=== PATIENT | male | born 1960 | race Caucasian/White ===

== ENCOUNTER 2017-08-25 09:38 | Observation (INO) ==
[2017-08-25] MEDS ORDERED: Nitroglycerin 0.4 MG TAB.SUBL SL ONE (09:58)
[2017-08-25] MEDS ORDERED: Aspirin 81 MG TAB.CHEW PO ONE (09:58)
[2017-08-25] MEDS ORDERED: 0.9 % Sodium Chloride 500 ML IVC ONE (10:06)
--- NOTE | 2017-08-25 10:09 | Emergency Department Note ---
Disposition Clinical Impression: Tobacco abuse, History of MD (myocardial infarction) Chest pain Qualifiers: Chest pain type: unspecified Qualified Code(s): R07.9 - Chest pain, unspecified Disposition: Admitted As Inpatient Condition: Fair Referrals: NONE,PCP [Primary Care Provider] - Forms: ED Satisfaction Letter Time of Disposition: 11:54 Chest Pain HPI - General Chief Complaint: ED Chest Pain Stated Complaint: CP Time Seen by Provider: 08/25/17 09:40 Source: patient Mode of arrival: ambulatory Limitations: no limitations Vital Signs Reviewed: Yes Nursing Notes Reviewed: Yes - History of Present Illness HPI Narrative: 56 year old male history of tobacco use, ACS. This provided additional chest pain. Patient states interim onset was approximately an hour prior to ED arrival. Patient noted retrosternal chest pressure with non-exertion patient also notes pain in his left arm. Notes numbness and tingling in his fingers. Patient does note some shortness of breath. Pain is worse with deep inspiration. Patient denies any vomiting. Patient denies any diaphoresis. Patient denies any fevers or cough. Patient states that he does not see a provider on a regular basis. Pt complaint: chest pain Time: 09:00 Severity scale (1-10): 8 - Related Data Home Medications Medication Instructions Recorded Confirmed No Known Home Drugs 08/25/17 08/25/17 Allergies Allergy/AdvReac Type Severity Reaction Status Date / Time No Known Allergies Allergy Verified 08/25/17 11:56 All systems ED: reviewed and negative except as stated. Constitutional: Denies: fever Cardiovascular: Reports: chest pain Respiratory: Reports: dyspnea. Denies: cough, sputum production Gastrointestinal: Denies: abdominal pain, nausea, vomiting Chest Pain PMH - Past Medical History Medical history: Reports: coronary artery disease Psychiatric history: Reports: no psych history - Social History Smoking Status: Current some day smoker Physical Exam - General Limitations: no limitations General appearance: alert, in no apparent distress - Head Head exam: atraumatic, normocephalic, normal inspection - Eye Eye exam: Present: normal appearance, PERRL, EOMI - ENT ENT exam: normal exam, normal oropharynx, mucous membranes moist - Neck Neck exam: Present: normal inspection, full ROM, trachea midline - Chest Chest inspection: Present: normal inspection, symmetric chest wall rise - Respiratory Respiratory exam: Present: prolonged expiratory phase, other (diffusely decreased). Absent: respiratory distress - Cardiovascular Cardiovascular exam: Present: regular rate, normal rhythm, +S1, +S2. Absent: + S3, +S4 - Abdominal Exam Abdominal exam: Present: soft, Non-Tender - Extremities Exam Extremities exam: Present: normal inspection. Absent: pedal edema - Back Exam Back exam: Present: normal inspection - Neurological Exam Neurological exam: Present: alert, oriented X3 - Psychiatric Psychiatric exam: Present: normal affect, normal mood - Skin Skin exam: Present: warm, dry, intact, normal color Course Course Narrative: Patient presented with CP and SOB of less than 1 hour. EKG showed sinus rhythm. D-dimer within normal limits. CXR with no acute findings. Troponin pending. - Reevaluation(s) Reevaluation #1: Patient's chest and arm pain improved but still present after administration of nitro x2. Continues to complain of numbness/paresthesia in the left arm. Initial troponin <0.03. Vital Signs Temperature 97.3 F L 08/25/17 09:45 Pulse Rate 101 08/25/17 09:45 Respiratory Rate 15 08/25/17 09:45 Blood Pressure 145/96 08/25/17 09:45 O2 Sat by Pulse Oximetry 98 08/25/17 09:45 Temperature 97.3 F L 08/25/17 09:58 Pulse Rate 80 08/25/17 11:15 Respiratory Rate 15 08/25/17 11:15 Blood Pressure 126/78 08/25/17 11:15 O2 Sat by Pulse Oximetry 98 08/25/17 11:15 Oxygen Delivery Oxygen Delivery Nasal Cannula Chest Pain - [facility] Narrative Medical decision making narrative: 56 yo male with numerous cardiac risk factors and history of previous MD presents with chest pain and shortness of breath. EKG, - Lab Data Lab results reviewed: Yes I reviewed the patient's lab results. Result diagrams: 08/25/17 09:56 08/25/17 09:56 Lab Results 08/25/17 08/25/17 08/25/17 Range/Units 09:56 09:56 09:56 WBC 9.6 (4.3-11.1) K/mcL RBC 5.27 (4.19-5.50) M/mcL Hgb 16.4 (12.9-16.9) g/dL Hct 48.9 (37.5-50.1) % MCV 92.8 (83.0-100.0) fL MCH 31.1 (28.0-33.3) pg MCHC 33.5 (31.6-35.5) g/dL RDW 13.2 (11.5-14.5) % Plt Count 311 (140-400) K/mcL MPV 10.7 (9.4-12.4) fL Immature Gran % 0.3 (0-4) % Seg Neutrophils % 67.7 % Lymphocytes % 24.3 % Monocytes % 6.3 % Eosinophils % 0.7 % Basophils % 0.7 % Neutrophils # 6.5 (1.6-8.9) K/mcL Lymphocytes # 2.3 (0.6-4.6) K/mcL Monocytes # 0.6 (0.0-1.3) K/mcL Eosinophils # 0.1 (0.0-0.6) K/mcL Basophils # 0.1 (0.0-0.2) K/mcL PT 11.8 (9.4-12.1) Seconds INR 1.1 APTT 30.9 (26.0-36.0) Seconds D-Dimer 232 (0-500) ng/mLFEU Sodium 137 (136-145) mEq/L Potassium 3.5 (3.5-5.1) mEq/L Chloride 104 (98-107) mEq/L Carbon Dioxide 22 L (23-29) mEq/L BUN 11 (6-20) mg/dL Creatinine 0.95 (0.70-1.30) mg/dL Est GFR ( Amer) > 60 (> 60) Est GFR (Non-Af Amer) > 60 (> 60) BUN/Creatinine Ratio 12 (6-26) Glucose 153 H (70-105) mg/dL Calculated Osmolality 286 (280-300) Calcium 9.9 (8.6-10.3) mg/dL Troponin I < 0.03 (< 0.04) ng/mL - Radiology Data Radiology results reviewed: Yes I reviewed the patient's radiology results. Chest X-Ray 08/25/17 09:58 IMPRESSION: Mild bibasilar atelectasis. No focal consolidation. D/ / Cristhian Gamboa MD / Cristhian Gamboa MD Interpreting Provider: Cristhian Gamboa MD - EKG Data EKG attestation: Yes I reviewed and interpreted this EKG. EKG shows normal: sinus rhythm Rate: normal Rhythm: NSR [place]/QRS: normal Interpretation: no acute changes, nonspecific ST-T wave changes Heart Score - Score History: Moderately Suspicious EKG: Normal Age: 45-65 Risk Factors: Equal/Greater than 3 risk factor or history of atherosclerotic disease Troponin: Less than normal limit HEART Score Total: 4 S.B.A.R. - S.B.A.R. Situation: Demographics, MOA Background: Presenting Complaint, Relevant PMH, Meds, & Allergies Assessment: Vital Signs, Course and respsone to treatment, Pertinant Lab Results , Outstanding Labs S.B.A.R. Report Given to: Dr. Alma Delia Haider Repor Time: 12:19 Attestation Statement - Attestation Attestation: I examined this patient and my medical decision-making was reviewed with the Resident Physician. I agree with the documented findings, disposition and treatment plan as described except to the extent set forth below. Patient to ED with chest pain. Described it as a stabbing sensation into his back. He has no vomiting numbness and tingling in the left hand as well. Patient states he was seen in [place] at one point and told that he had had a heart attack. He has never had a heart catheter. He has no stents. Patient is in no distress on examination. Heart regular lungs clear. Plan. Cardiac workup. Mildly tachycardic so we will check a d-dimer. Likely admission.
[2017-08-25 10:24] LABS: Basophils # 0.1 K/mcL (0.0-0.2); Basophils % 0.7 %; Eosinophils # 0.1 K/mcL (0.0-0.6); Eosinophils % 0.7 %; Hematocrit 48.9 % (37.5-50.1); Hemoglobin 16.4 g/dL (12.9-16.9); Immature Granulocytes % 0.3 % (0-4); Lymphocytes # 2.3 K/mcL (0.6-4.6); Lymphocytes % 24.3 %; Mean Corpuscular HGB Conc 33.5 g/dL (31.6-35.5); Mean Corpuscular Hemoglobin 31.1 pg (28.0-33.3); Mean Corpuscular Volume 92.8 fL (83.0-100.0); Mean Platelet Volume 10.7 fL (9.4-12.4); Monocytes # 0.6 K/mcL (0.0-1.3); Monocytes % 6.3 %; Neutrophils # 6.5 K/mcL (1.6-8.9); Platelet Count 311 K/mcL (140-400); Red Blood Count 5.27 M/mcL (4.19-5.50); Red Cell Distribution Width 13.2 % (11.5-14.5); Segmented Neutrophils % 67.7 %
[2017-08-25 10:29] LABS: INR 1.1; Prothrombin Time 11.8 Seconds (9.4-12.1)
[2017-08-25 10:31] LABS: Activated Partial Thrombo Time 30.9 Seconds (26.0-36.0)
[2017-08-25 10:41] LABS: BUN/Creatinine Ratio 12 (6-26); Blood Urea Nitrogen 11 mg/dL (6-20); Calcium 9.9 mg/dL (8.6-10.3); Carbon Dioxide 22 mEq/L (23-29); Chloride 104 mEq/L (98-107); Glucose 153 mg/dL (70-105); Osmolality,Calculated 286 (280-300); Potassium 3.5 mEq/L (3.5-5.1); Sodium 137 mEq/L (136-145); eGFR For African Americans > 60 (> 60); eGFR For Non-African Americans > 60 (> 60)
[2017-08-25 11:41] LABS: Troponin I < 0.03 ng/mL (< 0.04)
[2017-08-25] MEDS ORDERED: Naloxone 0.4 MG/ML INJ IVP PRN (14:44)
[2017-08-25] MEDS ORDERED: Nitroglycerin 0.4 MG TAB.SUBL SL PRN (14:47)
--- NOTE | 2017-08-25 14:50 | Internal Med History&Physical ---
<Sandy Cordero - Last Filed: 08/25/17 17:49> Date of Encounter: 08/25/17 Time of Encounter: 14:00 Assessment and Plan (1) ACS (acute coronary syndrome) Current visit: Yes Status: Suspected - Highly suspected given typical cardiac chest pain presentation with reported history of heart attack. - Initial troponin negative with no significant ischemic change on EKG comparing to EKG from 2013. - Will check lipid panel and Hgb A1C for risk stratification. - Continue aspirin and nitroglycerin prn chest pain. - Close monitoring with telemetry. - Case was discussed with attending Dr. Bell. Given the high suspicion of ACS, will consult cardiology for possible need of cardiac cath. - NPO now. (2) History of KS (myocardial infarction) Current visit: Yes Status: Acute - Reported heart attack at [place] more than 10 years ago and no known stent placement. (3) Tobacco abuse Current visit: Yes Status: Acute - Smoking cessation counseling. (4) DVT prophylaxis Current visit: Yes Status: Acute - SQ heparin. Internal Medicine - H&P: HPI Chief complaint: Chest pain Admitted From: Emergency Dept Plans for Post Hospital Care: Home History of present illness: Mr. Dodd is a 56 year old male with reported PMH of "heart attack" more than 10 years ago at [place] but no known stent or intervention done. Patient presented to [place] ED for chest pain starting this morning. It started when patient was lifting heavy load at work. Patient describes it as constant pressure-like left-sided retrosternal chest pain with radiating to the back and left arm and numbness/tingling at left hand and fingers. It's associated with shortness of breath, diaphoresis, significant generalized weakness which patient describes as 'black out" but does not think he lost consciousness. The nitroglycerin patient received in ED alleviated the pain from scale 10/10 to scale 4/10. Patient denies peripheral edema, cough, fever, chills, nausea, vomiting, diarrhea, abdominal pain, focal weakness. Patient reports no cardiac work-up such as stress test or echocardiogram done in past 10 years. Patient is full code. Past Med Surg Social Fam HX - Past Medical History Medical history: myocardial infarction Psychiatric history: no psych history - Past Surgical History Surgical History: knee replacement - Social History Smoking Status: Current every day smoker Packs per day: 1.5 Smokeless Tobacco Status: No Alcohol use: occasionally - Family History Father Son Name: Jaden Dodd Living Status: Age at : 54 Cause of : histoplasmosis Hx Family Respiratory Disorders: Yes Internal Medicine - H&P: Meds No Known Home Drugs 08/25/17 [History] 3 Allergy/AdvReac Type Severity Reaction Status Date / Time No Known Allergies Allergy Verified 08/25/17 11:56 All Systems PM: A 10-system review of systems was performed and is negative for pertinent findings except as documented above in the HPI. - Constitutional Constitutional: no chills, no fever(s) - EENT Eyes: no loss of vision Ears: no decreased hearing Nose, mouth and throat: no dysphagia - Cardiovascular Cardiovascular ROS IM: as per HPI - Respiratory Respiratory: no cough, no dyspnea - Gastrointestinal Gastrointestinal: no abdominal pain, no nausea, no vomiting - Genitourinary Genitourinary ROS male: no difficulty urinating, no dysuria, no hematuria - Integumentary Integumentary IM: no rash - Neurological Neurological ROS: numbness (left hand and fingers), tingling (left hand and fingers), no focal weakness - Constitutional Vitals: Temp Pulse Resp BP Pulse Ox 98.5 F 83 17 127/73 97 08/25/17 12:56 08/25/17 12:56 08/25/17 12:56 08/25/17 12:56 08/25/17 12:56 General appearance: Present: A&O X 3, no acute distress, answers questions appropriately - Head Head exam: Present: normal inspection - Eye Eye exam: Present: EOMI - Neck Neck exam general surgery: Present: normal inspection, trachea midline - Respiratory Respiratory exam: Present: CTAB - Cardiovascular Cardiovascular exam: Present: RRR, +S1, +S2 - GI/Abdominal GI/Abdominal exam: Present: normal bowel sounds, soft. Absent: tenderness - Extremities Exam Extremities exam: Present: normal inspection. Absent: cyanotic, pedal edema - Neurological Exam Neurological exam: Present: alert, no focal deficits. Absent: facial droop, speech deficit - Skin Skin exam: Present: intact, warm Internal Med - H&P Results - Labs CBC & Chem 7: 08/25/17 09:56 08/25/17 09:56 <Dario Bell - Last Filed: 08/26/17 12:20> Date of Encounter: 08/26/17 Internal Medicine - H&P: HPI History of present illness: Mr. Dodd is a 56 year old male All Systems PM: A 10-system review of systems was performed and is negative for pertinent findings except as documented above in the HPI. - Constitutional Vitals: Temp Pulse Resp BP Pulse Ox 97.8 F 79 15 126/69 93 08/26/17 11:08 08/26/17 11:08 08/26/17 11:08 08/26/17 11:08 08/26/17 11:08 Internal Med - H&P Results - Labs CBC & Chem 7: 08/25/17 09:56 08/26/17 04:46 Labs: BMP 08/26/17 04:46 Sodium 139 Potassium 4.0 Chloride 111 H Carbon Dioxide 24 BUN 10 Creatinine 0.83 Glucose 101 Calcium 9.0 Cardiac Enzymes 08/25/17 08/25/17 Range/Units 15:26 22:07 Troponin I < 0.03 < 0.03 (< 0.04) ng/mL - Attending Attestation I examined this patient and my medical decision-making was reviewed with the Resident Physician. I agree with the documented findings, disposition and treatment plan as described except to the extent set forth below.
[2017-08-25] MEDS: *HR* Heparin 5,000 UNIT/ML VIAL SQ SCH (18:11)
[2017-08-25] MEDS: Nicotine 14 MG PATCH.TD24 TD SCH (19:44)
--- NOTE | 2017-08-25 20:41 | Electrocardiograph Report ---
[address] [address] Test Date: 2017-08-25 Pat Name: Rene Dodd Department: 102 Room: 3B22 Gender: M Computer Console Operator: : [id number] Requested By: Darek Chung Order Number: [id number] Reading MD: Russ Yee MD Measurements Intervals [place] Rate: 94 P: 56 WI: 141 QRS: 7 QRSD: 83 T: 61 QT: 344 QTc: 396 Interpretive Statements SINUS RHYTHM Electronically Signed On 08-25-2017 20:40:24 EDT by Russ Yee MD
[2017-08-26] MEDS: *HR* Heparin 5,000 UNIT/ML VIAL SQ SCH (05:35)
[2017-08-26 06:38] LABS: BUN/Creatinine Ratio 12 (6-26); Blood Urea Nitrogen 10 mg/dL (6-20); Carbon Dioxide 24 mEq/L (23-29); Chloride 111 mEq/L (98-107); Chol/HDL Ratio 7.4 (0-4.9); Cholesterol 178 mg/dL (< 200); Glucose 101 mg/dL (70-105); HDL Cholesterol 24 mg/dL (40-59); LDL Cholesterol,Calculated 127 mg/dL (0-99); Osmolality,Calculated 287 (280-300); Sodium 139 mEq/L (136-145); Triglycerides 136 mg/dL (< 150); eGFR For African Americans > 60 (> 60); eGFR For Non-African Americans > 60 (> 60)
[2017-08-26] MEDS: Nicotine 14 MG PATCH.TD24 TD SCH (07:31)
[2017-08-26] MEDS ORDERED: Aspirin 81 MG TAB.CHEW PO SCH (09:00)
[2017-08-26 09:37] LABS: Estimated Average Glucose 126 mg/dl
--- NOTE | 2017-08-26 10:52 | Cardiology Consult Note ---
Date of Encounter: 08/26/17 Time of Encounter: 10:50 Assessment and Plan (1) Unstable angina Current Visit: Yes Status: Acute ASA/PLavix?heparin ACS IV protocol and left heart cath today. R/B/A d/w patient and he agrees to proceed Discussion w patient/family: The assessment and plan as outlined above was discussed with the patient and/or family members who expressed understanding and agreement. All questions were answered. Thank you for involving us in the care of your patient. Please call with any questions. History of Present Illness Consult date: 08/26/17 Consult reason: Chest pain Chief complaint: Pain in my chest History of present illness: Mr. Dodd is a 56 year old male smoker presents with chest pain, RSCP, heaviness radiating down the left upper extremity and upper interscapular region. This occured while working and has waxed and waned ever since. Negative CE's with priyanka inferior ST changes. R/B/A d/w patient in regards to a [facility] and he agrees to proceed. Past Med Surg Social Fam HX - Past Medical History Medical history: myocardial infarction Psychiatric history: no psych history - Past Surgical History Surgical History: knee replacement - Social History Smoking Status: Current every day smoker Packs per day: 1.5 Smokeless Tobacco Status: No Alcohol use: occasionally - Family History Father Son Name: Jaden Ddod Living Status: Age at : 54 Cause of : histoplasmosis Hx Family Respiratory Disorders: Yes Medications and Allergies No Known Home Drugs 08/25/17 [History] 3 Allergy/AdvReac Type Severity Reaction Status Date / Time No Known Allergies Allergy Verified 08/25/17 11:56 All Systems Review: The remainder of the systems were reviewed and are negative Physical Examination Vital Signs, Last 4 Hours Temp Pulse Resp BP Pulse Ox 08/26/17 07:05 98.0 F 96 16 121/72 95 General: Conversant, No Apparent Distress HEENT: Atraumatic, Normocephaly, Mucus Membranes Moist Neck: No JVD, Normal carotid pulses Cardiac: Reg Rate and Rhythm, Normal S1 and S2, No Murmur Lungs: Normal Breath Sounds, No Wheeze, Rales, Rhonchi Neuro: Alert and responsive, No focal deficits noted Abdomen: Soft, Non-Tender Skin: No rashes noted on visualized skin Musculoskeletal: No Chest Wall Tenderness Extremities: No Clubbing, No Cyanosis, No Edema, Normal Pulses Results 08/25/17 09:56 08/26/17 04:46 Lab Results 08/25/17 08/25/17 08/26/17 15:26 22:07 04:46 Sodium 139 Potassium 4.0 Chloride 111 H Carbon Dioxide 24 BUN 10 Creatinine 0.83 Glucose 101 Calcium 9.0 Troponin I < 0.03 < 0.03 Consult Discharge Plan - Plan Referrals: NONE,PCP [Primary Care Provider] -
[2017-08-26] MEDS ORDERED: 0.9 % Sodium Chloride 1,000 ML ONE ×2 (12:14→13:20)
[2017-08-26] MEDS ORDERED: Heparin 1,000 UNITS/500 mL 500 ML ONE (12:15)
[2017-08-26] MEDS ORDERED: ISOVUE-370 200 ML INFUS..BTL IV ONE (12:15)
[2017-08-26] MEDS ORDERED: *HR* Heparin 10,000 UNIT/10 ML VIAL ONE (12:15)
[2017-08-26] MEDS ORDERED: *HR* FentaNYL (PF) 100 MCG/2 ML VIAL ONE (12:29)
[2017-08-26] MEDS ORDERED: *HR* Midazolam HCl 2 MG/2 ML VIAL ONE (12:29)
[2017-08-26] MEDS ORDERED: Nitroglycerin 1,000 MCG/10 ML VIAL IV ONE (12:29)
--- NOTE | 2017-08-26 13:06 | Internal Med Progress Note ---
Date of Encounter: 08/26/17 Time of Encounter: 07:15 - Assessment and plan (1) ACS (acute coronary syndrome) Current Visit: Yes Status: Suspected Assessment and plan: - Highly suspected given typical cardiac chest pain presentation with reported history of heart attack. - Negative troponin x 3 with no significant ischemic change on EKG comparing to EKG from 2013. - Continue aspirin and nitroglycerin prn chest pain. - Close monitoring with telemetry. - Cardiology recommends left heart catheter, likely later today. Appreciate cardiology recommendations. (2) Pre-diabetes Current Visit: Yes Status: Chronic Assessment and plan: - Hgb A1C 6.0. - Will recommend life style modification. (3) History of ND (myocardial infarction) Current Visit: Yes Status: Acute Assessment and plan: - Reported heart attack at [place] more than 10 years ago and no known stent placement. (4) Tobacco abuse Current Visit: Yes Status: Acute Assessment and plan: - Smoking cessation counseling. (5) DVT prophylaxis Current Visit: Yes Status: Acute Assessment and plan: - SQ heparin. - Subjective Interval history: Patient was seen and examined this morning. Patient complains some intermittent chest pain but states it has been significantly improved compared to yesterday. Patient admits some dyspnea on exertion while using bathroom. Patient denies lightheadedness, peripheral edema, fever, chills. Patient verbalized his understanding of the plan to remain NPO until being seen by cardiology. - Constitutional Vitals: Temp Pulse Resp BP Pulse Ox 97.8 F 79 15 126/69 93 08/26/17 11:08 08/26/17 11:08 08/26/17 11:08 08/26/17 11:08 08/26/17 11:08 General appearance: Present: A&O X 3, no acute distress, answers questions appropriately - Head Head exam: Present: normal inspection - Eye Eye exam: Present: EOMI - Neck Neck exam general surgery: Present: normal inspection, supple, trachea midline - Respiratory Respiratory exam: Present: CTAB - Cardiovascular Cardiovascular exam: Present: RRR, +S1, +S2 - GI/Abdominal GI/Abdominal exam: Present: normal bowel sounds, soft. Absent: tenderness - Extremities Exam Extremities exam: Present: normal inspection. Absent: pedal edema - Neurological Exam Neurological exam: Present: alert, no focal deficits. Absent: facial droop, speech deficit - Skin Skin exam: Present: dry, intact, warm Internal Medicine: Result - Labs CBC & Chem 7: 08/25/17 09:56 08/26/17 04:46 Labs: BMP 08/26/17 04:46 Sodium 139 Potassium 4.0 Chloride 111 H Carbon Dioxide 24 BUN 10 Creatinine 0.83 Glucose 101 Calcium 9.0 Cardiac Enzymes 08/25/17 08/25/17 Range/Units 15:26 22:07 Troponin I < 0.03 < 0.03 (< 0.04) ng/mL - ABG Interpretation ABG results: PT/INR, D-dimer PT 11.8 Seconds (9.4-12.1) 08/25/17 09:56 D-Dimer 232 ng/mLFEU (0-500) 08/25/17 09:56 - VTE Reasons for not Prescribing Prophylaxis: Treatment not Indicated - Low risk for VTE Consult Discharge Plan - Plan Referrals: NONE,PCP [Primary Care Provider] -
--- NOTE | 2017-08-26 13:25 | Pre-Sedation Evaluation ---
Pre-sedation evaluation - Pre-sedation checklist Date of procedure: 08/26/17 Procedure: [facility] Recent Vitals: Last Vital Signs Temp 97.8 F 08/26/17 11:08 Pulse 79 08/26/17 11:08 Resp 15 08/26/17 11:08 BP 126/69 08/26/17 11:08 Pulse Ox 93 08/26/17 11:08 H&P (including ROS) documented in medical record: Yes Previous reaction to sedatives/anesthetics: No Dietary Status: NPO after Midnight Airway Assessment: Patient can open mouth completely, TMJ function normal, Micrognathia (under-bite, receding chin) absent, Neck with adequate range of motion Dentition: No loose teeth or bridges Possible difficult airway: No ASA Classification *see protocol: CLASS II-Mild systemic disease Plan of Care: Pt appropriate candidate for procedure/moderate/conscious sedation , Risks/benefits of procedure/sedation discussed w/ patient/family
--- NOTE | 2017-08-26 13:48 | Event Note ---
Date of Encounter: 08/26/17 Time of Encounter: 13:40 - Cardiology Event Note Reviewed [facility] findings with Dr. Amisha Lopez--normal coronary arteries. Risk factor modification encouraged. Cardiology will sign-off, follow-up with PCP. Patient discussed and reviewed with Dr. Pham who agrees with plan.
--- NOTE | 2017-08-26 13:57 | Invasive Diagnostic Lab Proc ---
Name: Rene Dodd Date of Study: 08/26/2017 Date: 1960 Ht: 70.1in Medical Record#: [id number] Age: 56 Wt: 160.94lb Gender: Male BSA: 1.9 Order #: [id number] BMI: 23.04 Physicians Procedure Physician: Amisha Lopez MD, [facility] Referring MD: Referring MD: Staff Name Position Time In Jian Forrester RT (R) Monitor 12:20 PM Sharita Flannery RN Director Funds Development 12:20 PM Latrice Taylor RT (R) Scrub 12:20 PM Indications Indication Unstable Angina Procedures Performed Procedure L HRT ARTERY/VENTRICLE ANGIO Pre-Procedure Checklist Informed consent is complete signed and on chart. H&P is on chart. ID band is on and ID verified with patient. Patient NPO for procedure The procedure was described for the patient and questions were answered. Blood Pressure: 117/74 ECG is on chart. Rhythm: NSR Plan of Care Patient will tolerate the procedure without complications. Adequate level of comfort will be maintained. Hemodynamics will remain stable Patient will recover from procedure without complications. Respiratory function will be maintained. Cardiac rhythm will remain stable. Patient temperature will be maintained. Patient and/or family have verbalized understanding of the procedure. Patient Education Chief Complaint/Reason for Test: Cardiac Cath Developmental Category: Adult (18-64 years) Developmentally Appropriate for Age: Yes Learning Barriers: None Education Needs: Procedure Education Method: Verbal Information Taught: Cardiac Cath Educational Evaluation: Able to repeat information Intravenous Access Time IV Size Location DC'd Fluid/Drip Rate Units RN 12:34 PM 20g 1 /" Peripheral-Lock On Arrival Rt Antecubital 0.9NaCl 25 ml/hr Sharita Flannery RN Allergies Tramadol Vital Signs Time BP (mmHg) HR (bpm) O2 Sat. RR (bpm) LOC 12:32 PM 117 / 74 75 99 % 18 5 = Fully awake and oriented or at pre-proc level 12:47 PM / % 5 = Fully awake and oriented or at pre-proc level 01:03 PM / % 5 = Fully awake and oriented or at pre-proc level 01:21 PM / % 4 = Oriented but drowsy 01:21 PM 117 / 74 83 99 % 19 01:26 PM 119 / 71 66 99 % 14 01:31 PM 108 / 64 81 97 % 12 01:37 PM 112 / 64 81 95 % 01:41 PM 110 / 68 75 97 % 13 01:46 PM 105 / 63 80 97 % 16 01:36 PM / % 5 = Fully awake and oriented or at pre-proc level Procedural Medications Time Medication Dose Units Method Given By 01:22 PM Oxygen 2 L/min nasal cannula Sharita Flannery RN 01:27 PM Versed 2 mg Intravenous Sharita Flannery RN 01:27 PM Fentanyl 50 mcg Intravenous Sharita Flannery RN 01:31 PM Lidocaine 2% 20 ml Subcutaneous Amisha Lopez MD, [facility] ASA Classification: CLASS II- Mild systemic disease (i.e. well-controlled diabetes, hypertension, asthma, cigarette smoking) Holden Score Preprocedure Postprocedure Activity 2- Moves 4 extremities sustained head lift Activity Circulation 2- SBP +/= 20 points of pre-anesthetic level Circulation Consciousness 2- Awake and alert oriented x 3 Consciousness O2 Saturation 2- Able to maintain O2 satruation of 92% on room air O2 Saturation Respiratory 2- Able to deep breathe and cough well Respiratory Total Score 10 Total Score Contrast Agent: Isovue Diagnostic Contrast: 56 ml Total Contrast: 56 ml Fluoro Dose: 96 mGy Procedure Log Time Note Enter By 12:20 PM Jian Forrester RT (R) Position: Monitor Time in: 12:20 [email or web address] 12:20 PM Sharita Flannery RN Position: Director Funds Development Time in: 12:20 [email or web address] 12:21 PM Latrice Taylor RT (R) Position: Scrub Time in: 12:20 [email or web address] 12:21 PM Patient charges- Angio tray pack, Navilyst 3mm J, Pulse Oximetry and ACIST tubing and transducer [email or web address] 12:31 PM Pt arrived to circus laborer 2 at 12:31 [email or web address] 12:32 PM Time: 12:32 Patient comfortable and pain free: Yes [email or web address] 12:32 PM Time: 12:32LOC: 5 = Fully awake and oriented or at pre-proc level [email or web address] 12:32 PM CathStat 12:47 PM Time: 12:32 Patient comfortable and pain free: Yes [email or web address] 12:47 PM Time: 12:32LOC: 5 = Fully awake and oriented or at pre-proc level [email or web address] 01:03 PM Time: 12:47LOC: 5 = Fully awake and oriented or at pre-proc level :03 PM Time: 12:47 Patient comfortable and pain free: Yes : PM Case Delayed No : PM Physician arrived 13:16 :16 PM ASA Class CLASS II- Mild systemic disease (i.e. well-controlled diabetes, hypertension, asthma, cigarette smoking) :16 PM Meet and greet completed : PM Sign in performed according to hospital policy. :17 PM Procedure start 13:16 : PM Hair removed from procedure site in procedure lab using clippers. Bilateral groin prepped with Chloraprep by Latrice Taylor (R), then patient was draped. Skin intact. :20 PM Vitals capture started with the following parameters, Patient=Adult, Interval=5 min, Initial Uriakdzh=566 mmHg, Deflation Rate=5 mmHg, Cuff placed on Right Arm : PM Recorded ECG: HR=75 Condition=Condition 1 : PM Time: 13:03 Patient comfortable and pain free: Yes PM Time: 13:03LOC: 5 = Fully awake and oriented or at pre-proc level : PM HR=83 bpm, CVRT=975/74 mmhg, SpO2=99.0 %, Resp=19 B/min 01:22 PM Time: 13:22 Oxygen on at 2 L/min per nasal cannula by Sharita Flannery RN :24 PM Pressure channel 1 zeroed. 01:26 PM HR=66 bpm, QBNI=909/71 mmhg, SpO2=99.0 %, Resp=14 B/min 01: PM Time: 13:27 Versed 2 mg Intravenous Given by Sharita Flannery RN : PM Time: 13:27 Fentanyl 50 mcg Intravenous Given by Sharita Flannery RN :30 PM Time out performed according to hospital policy :31 PM HR=81 bpm, AHDP=319/64 mmhg, SpO2=97.0 %, Resp=12 B/min 01:32 PM Time: 13:31 20 ml Lidocaine 2% to right groin Subcutaneous Given by Amisha Lopez MD, [facility] [email or web address] 01:32 PM Access obtained by percutaneous puncture. 5Fr 10cm [employer] sheath placed in right Femoral artery. [id number] 01:32 PM 0.035 145cm Navilyst 3mmJ wire [id number] 01:32 PM 5Fr FL 4 catheter inserted over the wire [facility] 01:33 PM LCA angiography performed in multiple views. 01:33 PM Recorded Pressure: Ao, HR=88, Condition=Condition 1 (Aorta) Ao 136/69/96 01:34 PM Catheter removed 01:35 PM 5Fr FR 4 catheter inserted over the wire [facility] 01:35 PM RCA angiography performed in multiple views. :36 PM Time: 13:21 Patient comfortable and pain free: Yes :36 PM Time: 13:21LOC: 4 = Oriented but drowsy [email or web address] 01:36 PM Recorded Pressure: Ao, HR=85, Condition=Condition 1 (Aorta) Ao 101/78/90 01:36 PM Catheter removed 01:37 PM 5Fr Pigtail catheter inserted over the wire [facility] 01:37 PM HR=81 bpm, JLTO=018/64 mmhg, SpO2=95.0 % 01:37 PM Catheter selectively placed in left ventricle 01:38 PM Pressure channel 1 zeroed. 01:38 PM Recorded Pressure: LV, HR=82, Condition=Condition 1 (Left Ventricle) LV 74/5/7 01:38 PM Bolus angiogram of left Ventricle complete: 8 ml/sec for a total of 24 mls [email or web address] 01:38 PM Recorded Pressure: LV, Ao, HR=79, Condition=Condition 1 (Left Ventricle) LV 461/73/461, (Aorta) Ao 94/23/54 01:39 PM Physician reviewing films [email or web address] 01:39 PM Catheter removed [email or web address] 01:39 PM Coronary Dominance: right [email or web address] 01:39 PM Bolus angiogram of right Femoral complete: 4 ml/sec for a total of 7 mls [email or web address] 01:40 PM Procedure completed at 13:40 [email or web address] 01:41 PM HR=75 bpm, BDPP=426/68 mmhg, SpO2=97.0 %, Resp=13 B/min 01:42 PM Arterial sheath pulled, Mynx closure device used and was Successful [id number] S/N. [email or web address] 01:42 PM Sign out completed: Radiation Dose 96.25 mGy Fluoro Time: 1.8 Isovue 370 - 200ml contrast 55.6 ml given by Amisha Lopze MD, [facility]. Complications: NoneCardiac Rehab Consult needed: NoConfirmed administered medications: Yes [email or web address] 01:42 PM Isovue 370 - 200ml,1 Bottle(s) used. [email or web address] 01:43 PM Estimated Blood Loss: less than 20cc [email or web address] 01:43 PM Post ECG NSR [email or web address] 01:43 PM Post Blood Pressure 110/68 [email or web address] 01:43 PM 13:43 Post Pulses Bilateral DP & PT 1+ [email or web address] 01:43 PM Information taught Cardiac Cath and Mynx [email or web address] 01:43 PM Education needs Procedure, Plan of Care, and Disease Process [email or web address] 01:43 PM Learning barriers :None [email or web address] 01:43 PM Education Methods Verbal [email or web address] 01:43 PM Education evaluation Able to repeat information [email or web address] 01:44 PM Delay to floor No [email or web address] 01:44 PM Complications: None [email or web address] 01:44 PM Fluoro Time: 1.8 [email or web address] 01:44 PM Isovue 370 - 200ml contrast 55.6 ml given by . [email or web address] 01:44 PM Radiation Dose 96.25 mGy [email or web address] 01:46 PM Site status No bleeding/hematoma - Rt Groin as reported by Latrice Talyor RT (R) at 13:46 [email or web address] 01:46 PM Opsite applied [email or web address] 01:46 PM HR=80 bpm, BGDL=942/63 mmhg, SpO2=97.0 %, Resp=16 B/min 01:46 PM Vitals capture stopped. 01:47 PM Report given to valentine CONNOR Pt taken to Room #22. 13:47 [email or web address] 01:48 PM Delay to floor No [email or web address] 01:51 PM Time: 13:36LOC: 5 = Fully awake and oriented or at pre-proc level [email or web address] 01:51 PM Time: 13:36 Patient comfortable and pain free: Yes [email or web address] 01:51 PM Patient out of room: 13:51 [email or web address] Complications Complication None None Hemodynamics Pressures Site Systolic/A Wave Diastolic/V Wave Mean AO 136 69 96 AO 101 78 90 LV 74 5 7 LV 461 73 461 AO 94 23 54 Post Procedure Information Blood Pressure: 110/68 mmHg Rhythm: NSR Post procedural instructions were given Closure Device Time Device Success/Fail 08/26/2017 1:42:00 PM MynxGrip Successful Site Checks Time Location Status Staff Sheath In? Note 01:46 PM Rt Groin No bleeding/hematoma Latrice Taylor RT (R) Pulses Time Site Pre-Procedure Post-Procedure Note 08/26/2017 12:35:00 PM Bilateral DP & PT 1+ 1:43:00 PM Bilateral DP & PT 1+ Updated by Jian Forrester RT (R) on 08/26/2017 1:51:36 PM Jian Forrester RT electronically signed on 08/26/2017 1:51:57 PM with status of Final
--- NOTE | 2017-08-26 14:13 | Discharge Summary ---
<Sandy Cordero - Last Filed: 08/26/17 14:47> - NOTES TO OUTPATIENT PROVIDER Notes to Outpatient Provider: Mr. Dodd was hospitalized for left-sided chest pain work-up. Negative troponin x3 and LHC found no significant CAD. Hgb A1C 6.0 indicates pre-diabetes. Lipid panel found LDL 127 and HDL 24. Calculated 10- year cardiovascular risk 17.1% indicates need of moderate to high intensity statin per ACC/AHA guideline. Will start aspirin 81 mg and atorvastatin 40 mg daily on discharge. Orders not resulted at time of discharge: Pending orders 08/26/17 10:42 CL Cardiac Catheterization [CL] Routine Date of Encounter: 08/26/17 Time of Encounter: 14:00 - Discharge Diagnosis (1) ACS (acute coronary syndrome) Priority: Primary Status: Ruled-out Comments: - LHC found no significant CAD. (2) Pre-diabetes Priority: Secondary Status: Chronic (3) History of GA (myocardial infarction) Priority: Secondary Status: Acute (4) Hyperlipidemia Priority: Secondary Status: Chronic Qualifiers: Hyperlipidemia type: pure hypercholesterolemia Qualified Code(s): E78.00 - Pure hypercholesterolemia, unspecified; E78.0 - Pure hypercholesterolemia (5) Tobacco abuse Priority: Secondary Status: Acute Hospital course: Mr. Dodd is a 56 year old male with reported PMH of "heart attack" more than 10 years ago at [place] but no known stent or intervention done. Patient presented to [place] ED for chest pain that started when patient was lifting heavy load at work. Patient describes it as constant pressure-like left-sided retrosternal chest pain with radiating to the back and left arm and numbness/ tingling at left hand and fingers. It's associated with shortness of breath, diaphoresis, significant generalized weakness which patient describes as 'black out" but does not think he lost consciousness. The nitroglycerin patient received in ED alleviated the pain. Patient was admitted for cardiac chest pain work-up. Negative troponin x3 and LHC on 08/26/17 found no significant CAD. Hgb A1C 6.0 indicates pre-diabetes. Lipid panel found LDL 127 and HDL 24. Calculated 10-year cardiovascular risk 17.1% indicates the need of moderate to high intensity statin per ACC/AHA guideline. Given patient improves clinically and remains hemodynamically stable, patient can be discharged home with prescribed aspirin 81 mg PO daily and atrovastatin 40 mg PO daily. Patient is also instructed to take prescribed nitroglycerin as needed for chest pain and come to emergency room if chest pain does not improve with nitroglycerin. Patient is encouraged to have have lifestyle modification such as exercise and healthy diet along with reducing number of cigarettes use which patient can use prescribed nicotine patch for smoking cessation effort. Patient will need to follow up with his primary care physician regarding his hospitalization and newly founded pre-diabetes and hyperlipidemia within a week. Patient and his family at bedside expressed their understanding and agreement with the discharge plan. All questions were answered. Discharge discussed with: patient, family - Time Spent with Patient Total time spent providing and/or coordinating discharge services: - Discharge Medications Prescriptions: Nitroglycerin 0.4 mg SL Q5MIN PRN #10 tab.subl PRN Reason: Chest Pain Aspirin 81 mg PO DAILY #30 tab.chew Atorvastatin [Lipitor] 40 mg PO HS #30 tablet Nicotine Patch [Nicoderm] 14 mg TD DAILY #30 patch.td24 Home Medications: Aspirin 81 mg PO DAILY #30 tab.chew 08/26/17 [Rx] Atorvastatin [Lipitor] 40 mg PO HS #30 tablet 08/26/17 [Rx] Nicotine Patch [Nicoderm] 14 mg TD DAILY #30 patch.td24 08/26/17 [Rx] Nitroglycerin 0.4 mg SL Q5MIN PRN #10 tab.subl 08/26/17 [Rx] Allergies/Adverse Reactions: 3 Allergy/AdvReac Type Severity Reaction Status Date / Time No Known Allergies Allergy Verified 08/25/17 11:56 Date of admission: 08/25/17 12:35 Primary care physician: PCP NONE Consults: 08/25/17 13:47 Consult to Chief Jailer [CONS] Routine Reason for SW Consult: pt states he is homeless but staying with family at current time. Discharging clinician: Sandy Cordero Anticipated date of discharge: 08/26/17 - Constitutional Vitals: Temp Pulse Resp BP Pulse Ox 97.8 F 79 15 126/69 93 08/26/17 11:08 08/26/17 11:08 08/26/17 11:08 08/26/17 11:08 08/26/17 11:08 General appearance: Present: A&O X 3, no acute distress, answers questions appropriately - Head Head exam: Present: normal inspection - Eye Eye exam: Present: EOMI - Neck Neck exam general surgery: Present: normal inspection, supple, trachea midline - Respiratory Respiratory exam: Present: CTAB - Cardiovascular Cardiovascular exam: Present: RRR, +S1, +S2 - GI/Abdominal GI/Abdominal exam: Present: normal bowel sounds, soft. Absent: tenderness - Extremities Exam Extremities exam: Absent: cyanotic, pedal edema - Neurological Exam Neurological exam: Present: alert, no focal deficits. Absent: facial droop, speech deficit - Skin Skin exam: Present: dry, warm - Patient Status Disposition: Home, Self-Care Condition: Fair Functional capacity at discharge: independent ambulation Overall status at discharge: patient is progressing back to baseline - Discharge Instructions Instructions: Chest Pain (DC) Follow Up With: NONE,PCP [Primary Care Provider] - (Within a week.) Additional Instructions: Please take prescribed aspirin 81 mg daily and atorvastatin 40 mg daily for cardiovascular health and hyperlipidemia. Please take prescribed nitroglycerin as needed for chest pain and come to emergency room if chest pain does not improve with nitroglycerin Please reduce number of cigarettes use and you can use prescribed nicotine patch for smoking cessation effort. Please have lifestyle modification such as exercise and healthy diet for your pre-diabetes. Please follow up with your primary care physician regarding your hospitalization and newly founded pre-diabetes and hyperlipidemia. - Diet and Activity Activity: increase activity as tolerated Diet: diabetic diet, low fat, low cholesterol - VTE Reasons for not Prescribing Prophylaxis: Treatment not Indicated - Low risk for VTE <Jamshid Antonoi - Last Filed: 08/26/17 15:37> Date of Encounter: 08/26/17 Hospital course: Mr. Dodd is a 56 year old male Time spent discussing smoking cessation with patient: 3 to 10 minutes - Time Spent with Patient Total time spent providing and/or coordinating discharge services: Less than 30 minutes Date of admission: 08/25/17 12:35 Primary care physician: PCP NONE Consults: 08/25/17 13:47 Consult to Chief Jailer [CONS] Routine Reason for SW Consult: pt states he is homeless but staying with family at current time. - Constitutional Vitals: Temp Pulse Resp BP Pulse Ox 97.8 F 84 16 113/67 93 08/26/17 11:08 08/26/17 15:00 08/26/17 15:00 08/26/17 15:00 08/26/17 11:08 - Attending Attestation I examined this patient and my medical decision-making was reviewed with the Resident Physician. I agree with the documented findings, disposition and treatment plan as described except to the extent set forth below. Agree with discharge home , LHC is negative, start on Lipitor for hyperlipidemia , smoking cessation counselling done
[2017-08-26 16:15] VITALS: BP 118/72
== END 2017-08-26 17:06 | disposition home or self-care (01) ==
LOC: EMEROO 09:38 → 3BNU 09:38 → SUATTDRO 12:35 → 3BNU 12:47
PROVIDERS: ADMIT Registered Nurse; ATTEND Internal Medicine

== ENCOUNTER 2018-02-01 16:07 | Observation (INO) ==
--- NOTE | 2018-02-01 16:19 | Emergency Department Note ---
Disposition Clinical Impression: History of IN (myocardial infarction) Chest pain Qualifiers: Chest pain type: chest pain on breathing Qualified Code(s): R07.1 - Chest pain on breathing; R07.81 - Pleurodynia Disposition: Admitted As Inpatient Condition: Good Time of Disposition: 20:59 General Adult HPI - General Stated complaint: Chest pain Time Seen by Provider: 02/01/18 16:12 Nursing Notes Reviewed: Yes Vital Signs Reviewed: Yes - History of Present Illness HPI Narrative: Male patient presenting to emergency complaining of a chest pressure to the center of his chest that began while he was sitting in his bed with this. Watching television. He denies any shortness of breath but does report a 2 day history of cough. States he does have a history of an IN several years ago. Did have a cardiac catheter done in August or September of this year. No lesions found. Patient does not have any stents and has never had a open-heart surgery. Patient states he is a chronic smoker and has for several years. He denies any fevers or chills. No swelling to his extremities. He denies any nausea vomiting or diarrhea. He was given 4 baby aspirin and [address] on the way in. This did not help relieve this chest pain is blood pressure did decrease after the nitroglycerin. He was given a liter of fluid at that time - Related Data Previous Rx's Medication Instructions Recorded Aspirin 81 mg PO DAILY #30 tab.chew 08/26/17 Atorvastatin [Lipitor] 40 mg PO HS #30 tablet 08/26/17 Nicotine Patch [Nicoderm] 14 mg TD DAILY #30 patch.td24 08/26/17 Nitroglycerin 0.4 mg SL Q5MIN PRN #10 tab.subl 08/26/17 Allergies Allergy/AdvReac Type Severity Reaction Status Date / Time No Known Allergies Allergy Verified 08/25/17 11:56 All systems ED: reviewed and negative except as stated. Review of Systems: As Per HPI Constitutional: Denies: fever, chills ENT ED: Denies: congestion Cardiovascular: Reports: chest pain. Denies: palpitations, syncope Respiratory: Reports: cough. Denies: dyspnea Gastrointestinal: Denies: abdominal pain, nausea, vomiting, diarrhea Musculoskeletal: Denies: back pain, neck pain Integumentary: Denies: rash Neurological: Denies: headache, weakness Past Medical History - Past Medical History Attestation: Yes The following information was validated with the patient. Source: patient Medical history: Reports: myocardial infarction Surgical history: Reports: knee replacement Psychiatric history: Reports: no psych history - Social History Smoking Status: Current every day smoker Smokeless Tobacco Status: No Alcohol use: Reports: occasionally Physical Exam - General Limitations: no limitations General appearance: alert, in no apparent distress - Head Head exam: atraumatic, normocephalic, normal inspection - Eye Eye exam: Present: normal appearance, PERRL, EOMI - ENT ENT exam: normal exam, normal oropharynx, mucous membranes moist - Neck Neck exam: Present: normal inspection, full ROM, trachea midline - Chest Chest inspection: Present: normal inspection, symmetric chest wall rise - Respiratory Respiratory exam: Present: normal lung sounds bilaterally. Absent: respiratory distress, accessory muscle use - Cardiovascular Cardiovascular exam: Present: regular rate, normal rhythm, normal heart sounds - Abdominal Exam Abdominal exam: Present: soft, Non-Tender. Absent: tenderness, distention, guarding, rebound, rigidity, organomegaly, Hogan's sign, Rovsing's sign, tenderness at McBurney's Point - Extremities Exam Extremities exam: Present: normal inspection, full ROM, normal capillary refill. Absent: tenderness, pedal edema - Back Exam Back exam: Present: normal inspection, full ROM. Absent: tenderness - Neurological Exam Neurological exam: Present: alert, oriented X3 - Psychiatric Psychiatric exam: Present: normal affect, normal mood - Skin Skin exam: Present: warm, dry, intact, normal color Course Course Narrative: Male patient complaining of chest pain in the center of his chest. It began while he was at rest watching television. Is not having history of stent placement but is a chronic smoker and has had a heart attack in the past. He denies any bypass surgery. He is a smoker and smokes a pack of cigarettes a day. This has decreased from 2 packs a day. We did discuss smoking cessation. He is agreeable to attempt this. He states that he is using nicotine patches however he has not stopped. We did give patient fentanyl while he was here. He did receive nitroglycerin by EMS however this decreases blood pressure. The fentanyl did decrease his pain and he refuses any other pain medication. Workup is noncontributory at this time. No signs of ST elevation on EKG. We will admit patient to the hospital for ACS rule out. - Consultations Consultation #1: Dr Scott accepted Pt in stable condition. Time: 20:05 Vital Signs Temperature 98.1 F 02/01/18 16:22 Pulse Rate 89 02/01/18 16:22 Respiratory Rate 20 02/01/18 16:22 Blood Pressure 86/72 02/01/18 16:22 O2 Sat by Pulse Oximetry 96 02/01/18 16:22 Temperature 98.1 F 02/01/18 16:22 Pulse Rate 86 02/01/18 17:30 Respiratory Rate 20 02/01/18 17:30 Blood Pressure 131/68 02/01/18 17:30 O2 Sat by Pulse Oximetry 98 02/01/18 17:30 Oxygen Delivery Oxygen Delivery Nasal Cannula Medical Decision Making - Medical Records Medical records reviewed: Yes I reviewed the patient's medical records. - Lab Data Lab results reviewed: Yes I reviewed the patient's lab results. Result diagrams: 02/01/18 16:40 02/01/18 16:24 Lab Results 02/01/18 02/01/18 02/01/18 Range/Units 16:24 16:30 16:40 WBC 11.1 (4.3-11.1) K/mcL RBC 5.05 (4.19-5.50) M/mcL Hgb 16.0 (12.9-16.9) g/dL Hct 46.2 (37.5-50.1) % MCV 91.5 (83.0-100.0) fL MCH 31.7 (28.0-33.3) pg MCHC 34.6 (31.6-35.5) g/dL RDW 14.1 (11.5-14.5) % Plt Count 238 (140-400) K/mcL MPV 9.9 (9.4-12.4) fL Immature Gran % 0.2 (0-4) % Seg Neutrophils % 62.7 % Lymphocytes % 24.9 % Monocytes % 9.5 % Eosinophils % 2.1 % Basophils % 0.6 % Neutrophils # 6.9 (1.6-8.9) K/mcL Lymphocytes # 2.8 (0.6-4.6) K/mcL Monocytes # 1.1 (0.0-1.3) K/mcL Eosinophils # 0.2 (0.0-0.6) K/mcL Basophils # 0.1 (0.0-0.2) K/mcL Immature Plt Fraction 4.1 (1.1-6.1) % PT 11.4 (9.4-12.1) Seconds INR 1.0 APTT 32.4 (26.0-36.0) Seconds Sodium 137 (136-145) mEq/L Potassium 3.4 L (3.5-5.1) mEq/L Chloride 106 (98-107) mEq/L Carbon Dioxide 24 (23-29) mEq/L BUN 11 (6-20) mg/dL Creatinine 0.93 (0.70-1.30) mg/dL Est GFR ( Amer) > 60 (> 60) Est GFR (Non-Af Amer) > 60 (> 60) BUN/Creatinine Ratio 12 (6-26) Glucose 158 H (70-105) mg/dL Calculated Osmolality 287 (280-300) Calcium 9.6 (8.6-10.3) mg/dL Troponin I < 0.03 (< 0.04) ng/mL - Radiology Data Radiology results reviewed: Yes I reviewed the patient's radiology results. Chest X-Ray 02/01/18 16:30 IMPRESSION: Stable examination without acute focal process. D/ / Hussein Lyons MD / Hussein Lyons MD Interpreting Provider: Hussein Lyons MD - EKG Data EKG #1 EKG attestation: Yes I reviewed and interpreted this EKG. EKG results narrative: Normal sinus rhythm at a rate of 93. IA interval is 125. Castration is 90. QT is 349. No signs of acute ischemia. No significant change from previous EKG dated 08/25/2017. Attestation Statement - Attestation Attestation: Patient was seen with resident physician. I reviewed the history, physical, assessment and plan, and agree with the findings. I also personally evaluated this patient and had [id number] time with this patient. 57-year-old male presents with chief complaint of chest pain for approximately 1 hour prior to presentation. Patient is a history of myocardial infarction she says, but no stents or bypass surgery. Patient is not on blood thinners. Patient does have nitroglycerin which she took at home without relief. Patient also got aspirin via EMS as well as nitroglycerin without relief. Patient states he currently is chest pain midsternal pressure sensation no radiation slightly different than previous IN. This also associated with diaphoresis Review systems as above remainder negative. Vital signs are stable. ENT is unremarkable. Heart regular rhythm and rate. Lungs clear. Abdomen soft nontender. Extremities unremarkable. Neurologically intact. Skin no rashes. Psych normal. ED course. We will do a cardiac workup for the patient would not chest x-ray troponin and EKG. EKG shows no acute ischemic changes, he does have what appears to be new T-wave inversion in lead 2 and V6. Patient's blood pressure was decreased having taken the nitroglycerin. We opted for fentanyl for pain management. Once patient's workup is complete he will be admitted to the hospitalist service for further evaluation and treatment. Agree with resident physician assessment and plan.
[2018-02-01] MEDS ORDERED: Aspirin 81 MG TAB.CHEW PO ONE (16:29)
[2018-02-01 16:41] LABS: Basophils # 0.1 K/mcL (0.0-0.2); Basophils % 0.6 %; Eosinophils # 0.2 K/mcL (0.0-0.6); Eosinophils % 2.1 %; Hematocrit 46.2 % (37.5-50.1); Immature Granulocytes % 0.2 % (0-4); Immature Platelets 4.1 % (1.1-6.1); Lymphocytes # 2.8 K/mcL (0.6-4.6); Lymphocytes % 24.9 %; Mean Corpuscular HGB Conc 34.6 g/dL (31.6-35.5); Mean Corpuscular Hemoglobin 31.7 pg (28.0-33.3); Mean Corpuscular Volume 91.5 fL (83.0-100.0); Mean Platelet Volume 9.9 fL (9.4-12.4); Monocytes # 1.1 K/mcL (0.0-1.3); Monocytes % 9.5 %; Neutrophils # 6.9 K/mcL (1.6-8.9); Platelet Count 238 K/mcL (140-400); Red Blood Count 5.05 M/mcL (4.19-5.50); Red Cell Distribution Width 14.1 % (11.5-14.5); Segmented Neutrophils % 62.7 %
[2018-02-01 16:48] LABS: Prothrombin Time 11.4 Seconds (9.4-12.1)
[2018-02-01 16:51] LABS: Activated Partial Thrombo Time 32.4 Seconds (26.0-36.0)
[2018-02-01] MEDS ORDERED: *HR* FentaNYL (PF) 100 MCG/2 ML VIAL IVP ONE (17:05)
[2018-02-01 17:09] LABS: BUN/Creatinine Ratio 12 (6-26); Blood Urea Nitrogen 11 mg/dL (6-20); Calcium 9.6 mg/dL (8.6-10.3); Carbon Dioxide 24 mEq/L (23-29); Chloride 106 mEq/L (98-107); Glucose 158 mg/dL (70-105); Osmolality,Calculated 287 (280-300); Potassium 3.4 mEq/L (3.5-5.1); Sodium 137 mEq/L (136-145); Troponin I < 0.03 ng/mL (< 0.04); eGFR For Non-African Americans > 60 (> 60)
[2018-02-02] MEDS ORDERED: Naloxone 0.4 MG/ML INJ IVP PRN (00:56)
[2018-02-02] MEDS ORDERED: 0.9 % Sodium Chloride 1,000 ML IVC SCH (01:00)
[2018-02-02] MEDS ORDERED: Nitroglycerin 0.4 MG TAB.SUBL SL PRN (01:01)
--- NOTE | 2018-02-02 03:40 | Internal Med History&Physical ---
Date of Encounter: 02/04/18 Time of Encounter: 01:45 Internal Medicine - H&P: HPI Chief complaint: Chest Pain History of present illness: Mr. Dodd is a 57 year old male with a past medical history of [place] and current smoker who presents with acute onset chest pain which patient states occurred around 2 PM yesterday afternoon while he was lying in bed watching TV. Patient states the pain was 5 out of 10 in intensity and nonradiating, nonpleuritic and lasted for approximately 10 hours. Patient was unsure if symptoms and this chest pain was similar to his prior episode of an [place] approximately 10 years ago. He denies any shortness of breath but does report a 2 day history of cough that has been relatively nonproductive. Patient continues to smoke has been smoking since he was a teenager. Denies any alcohol or drug use. Denies any exertional chest pain, nausea, vomiting or diaphoresis. No aggravating factors. Patient did take nitroglycerin at home which he states did not help. No significant changes are noted on EKG. Initial troponin was negative. Chest x-ray was unremarkable. Patient received nitroglycerin and transferred to the hospital which dropped his blood pressure. He was placed on a fentanyl patch subsequently. Past Med Surg Social Fam HX - Past Medical History Medical history: myocardial infarction Psychiatric history: no psych history - Past Surgical History Surgical History: knee replacement Additional surgical history: knee sx - Social History Smoking Status: Current every day smoker Packs per day: 1 Smokeless Tobacco Status: No Alcohol use: occasionally Drug use: none - Family History Father Son Living Status: Hx Family Respiratory Disorders: Yes Mother Living Status: Age at : 86 Hx Family Cardiac Disorders: Yes Hx Family Respiratory Disorders: Yes (unknown) Hx Family Cancer: No Hx Family GI Disorders: No Hx Family Genitourinary Disorders: No Hx Family Endocrine Disorder: Yes (dm) Hx Family Musculoskeletal Disorders: No Hx Family Neuromuscular Disorders: No Hx Family Neurologic Disorders: No Hx Family HEENT Disorders: No Hx Family Autoimmune Disorders: No Hx Family Reproductive Disorders: No Hx Family Psychosocial Disorders: No Hx Family Medical Disorders: No Father Living Status: Age at : 54 Hx Family Cardiac Disorders: No Hx Family Respiratory Disorders: Yes (emphysema) Hx Family Cancer: No Hx Family GI Disorders: No Hx Family Genitourinary Disorders: No Hx Family Endocrine Disorder: No Hx Family Musculoskeletal Disorders: No Hx Family Neuromuscular Disorders: No Hx Family Neurologic Disorders: No Hx Family HEENT Disorders: No Hx Family Autoimmune Disorders: No Hx Family Reproductive Disorders: No Hx Family Psychosocial Disorders: No Hx Family Medical Disorders: No Internal Medicine - H&P: Meds Aspirin 81 mg PO DAILY #30 tab.chew 08/26/17 [Rx] Atorvastatin [Lipitor] 40 mg PO HS #30 tablet 08/26/17 [Rx] Nicotine Patch [Nicoderm] 14 mg TD DAILY #30 patch.td24 08/26/17 [Rx] Nitroglycerin 0.4 mg SL Q5MIN PRN #10 tab.subl 08/26/17 [Rx] Omeprazole 20 mg PO DAILY #30 tablet. 02/02/18 [Rx] 3 Allergy/AdvReac Type Severity Reaction Status Date / Time No Known Allergies Allergy Verified 02/02/18 10:19 All Systems PM: A 10-system review of systems was performed and is negative for pertinent findings except as documented above in the HPI. - Constitutional Constitutional: no chills, no fever(s), no night sweats - Constitutional Exam: General: Alert and oriented Skin:Normal color, no rash, no lesions. HEENT:EOM, pupils equal, round and reactive. Cardiovascular:Normal S1 & S2, no rubs, murmurs or gallops. No JVD. Pulse regular. Lungs:Normal breath sounds, no wheezes or crackles. Abdomen:Soft, non-tender, no rigidity. Extremities:No deformity, no edema or tenderness, no joint swelling or clubbing. Neurological:Normal cognition and motor skills. Pulses:Carotid and radial pulses normal +2. Rest of the physical exam is non contributory Internal Med - H&P Results - Labs CBC & Chem 7: 02/02/18 03:58 02/02/18 03:58 - Assessment and plan (1) Chest pain Status: Acute Assessment and plan: Chest pain concerning for ACS given patient's cardiac history and significant smoking history however, no evidence of elevated troponins or EKG changes to support ischemia. At this time cannot rule out unstable angina. We will continue to trend troponins and recommend stress test in the a.m. Continue telemetry patient currently on a fentanyl patch for pain control given his drop in blood pressure after receiving 2 nitroglycerin doses. Continue patch as needed. Qualifiers: Chest pain type: unspecified Qualified Code(s): R07.9 - Chest pain, unspecified (2) Hypokalemia Status: Resolved Assessment and plan: Mild hypokalemia. We will replete orally. (3) Tobacco abuse Status: Chronic (4) Hyperlipidemia Status: Chronic Assessment and plan: Continue home statin. Qualifiers: Hyperlipidemia type: pure hypercholesterolemia Qualified Code(s): E78.00 - Pure hypercholesterolemia, unspecified; E78.0 - Pure hypercholesterolemia (5) Hypotension Status: Acute Assessment and plan: Transient hypotension after administration of 2 nitroglycerin in transit to the hospital. Patient received 1 L of fluids in the ED. Blood pressure remains low normal. Start additional liter and monitor. Qualifiers: Qualified Code(s): I95.9 - Hypotension, unspecified - Time Spent With Patient Total time spent is greater than 50% in coordination of care (as documented) at patient's floor/unit and/or counseling patient: - Constitutional Vitals: Temp Pulse Resp BP Pulse Ox 98.3 F 72 16 99/58 96 02/02/18 02:49 02/02/18 02:49 02/02/18 02:49 02/02/18 02:49 02/02/18 02:49 General: Alert and oriented x3; lying comfortably in bed. Skin:Normal color, no rash, no lesions. HEENT:EOM, pupils equal, round and reactive. Cardiovascular:Normal S1 & S2, no rubs, murmurs or gallops. No JVD. Pulse regular. Lungs:Normal breath sounds, no wheezes or crackles. Abdomen:Soft, non-tender, no rigidity. Extremities:No deformity, no edema or tenderness, no joint swelling or clubbing. Neurological:Normal cognition and motor skills. Pulses:Carotid and radial pulses normal +2. Rest of the physical exam is non contributory
[2018-02-02 04:48] LABS: Hematocrit 46.2 % (37.5-50.1); Hemoglobin 15.4 g/dL (12.9-16.9); Mean Corpuscular HGB Conc 33.3 g/dL (31.6-35.5); Mean Corpuscular Hemoglobin 31.4 pg (28.0-33.3); Mean Corpuscular Volume 94.1 fL (83.0-100.0); Mean Platelet Volume 10.6 fL (9.4-12.4); Platelet Count 233 K/mcL (140-400); Red Blood Count 4.91 M/mcL (4.19-5.50); Red Cell Distribution Width 14.3 % (11.5-14.5)
[2018-02-02 05:06] LABS: Troponin I < 0.03 ng/mL (< 0.04)
[2018-02-02 05:07] LABS: Alanine Aminotransferase 12 Units/L (7-52); Albumin 3.7 g/dL (3.5-5.7); Albumin/Globulin Ratio 1.4 (1.1-2.2); Alkaline Phosphatase 64 Units/L (34-104); Aspartate Amino Transferase 13 Units/L (13-39); BUN/Creatinine Ratio 13 (6-26); Bilirubin,Total 0.3 mg/dL (0.3-1.0); Blood Urea Nitrogen 14 mg/dL (6-20); Calcium 8.8 mg/dL (8.6-10.3); Carbon Dioxide 24 mEq/L (23-29); Chloride 111 mEq/L (98-107); Globulin 2.7 g/dL (2.4-3.5); Glucose 108 mg/dL (70-105); Osmolality,Calculated 291 (280-300); Potassium 4.2 mEq/L (3.5-5.1); Sodium 140 mEq/L (136-145); Total Protein 6.4 g/dL (6.4-8.9); eGFR For Non-African Americans > 60 (> 60)
[2018-02-02] MEDS ORDERED: Regadenoson 0.4 MG/5 ML SYRINGE IVP ONE (05:38)
[2018-02-02] MEDS: Potassium Citrate 10 MEQ TABLET.ER PO SCH ×2 (08:13→14:04)
[2018-02-02] MEDS ORDERED: Nicotine 21 MG PATCH.TD24 TD SCH (09:00)
[2018-02-02] MEDS ORDERED: Aspirin 81 MG TAB.CHEW PO SCH (09:00)
[2018-02-02 11:19] VITALS: BP 96/61
[2018-02-02] MEDS ORDERED: GI Cocktail 40 ML EACH PO ONE (14:10)
--- NOTE | 2018-02-02 15:14 | Discharge Summary ---
Date of Encounter: 02/02/18 Time of Encounter: 09:40 - Discharge Diagnosis (1) Chest pain Priority: Primary Status: Acute Assessment and Plan: Stress test cancelled due to negative C in August,. Chest pain relieved with GI cocktail. CXR negative, troponins negative. Pain not reproducible. Pt will be discharged, pain likely GERD. Qualifiers: Chest pain type: unspecified Qualified Code(s): R07.9 - Chest pain, unspecified (2) Tobacco abuse Priority: Secondary Status: Chronic Assessment and Plan: Pt smokes 1 PPD. He is not interested in nicotine replacement therapy. (3) Hyperlipidemia Priority: Secondary Status: Chronic Assessment and Plan: Continue home Lipitor. Qualifiers: Hyperlipidemia type: pure hypercholesterolemia Qualified Code(s): E78.00 - Pure hypercholesterolemia, unspecified; E78.0 - Pure hypercholesterolemia (4) Hypokalemia Priority: Secondary Status: Resolved (5) Hypotension Priority: Secondary Status: Acute Assessment and Plan: Pt states that this BP is normal for him. Pt has been asymptomatic and he does not have tachycardia. Qualifiers: Qualified Code(s): I95.9 - Hypotension, unspecified Hospital course: Please see assessment and plan for hospital course. Discharge discussed with: patient, nurse - Time Spent with Patient Total time spent providing and/or coordinating discharge services: Less than 30 minutes - Discharge Medications Prescriptions: Omeprazole 20 mg PO DAILY #30 tablet. Home Medications: Aspirin 81 mg PO DAILY #30 tab.chew 08/26/17 [Rx] Atorvastatin [Lipitor] 40 mg PO HS #30 tablet 08/26/17 [Rx] Nicotine Patch [Nicoderm] 14 mg TD DAILY #30 patch.td24 08/26/17 [Rx] Nitroglycerin 0.4 mg SL Q5MIN PRN #10 tab.subl 08/26/17 [Rx] Omeprazole 20 mg PO DAILY #30 tablet. 02/02/18 [Rx] Allergies/Adverse Reactions: 3 Allergy/AdvReac Type Severity Reaction Status Date / Time No Known Allergies Allergy Verified 02/02/18 10:19 Date of admission: 02/01/18 20:12 Primary care physician: PCP NONE Discharging clinician: Patricia Larson Anticipated date of discharge: 02/02/18 - Constitutional Vitals: Temp Pulse Resp BP Pulse Ox 97.4 F L 76 18 96/61 95 02/02/18 11:18 02/02/18 11:18 02/02/18 11:18 02/02/18 11:18 02/02/18 11:18 General appearance: Present: cooperative, A&O X 3, morbidly obese, pleasant, answers questions appropriately Exam: As above - Head Head exam: Present: atraumatic, normal inspection, normocephalic - Eye Eye exam: Present: normal appearance, PERRL, conjuntiva pink, sclera anicteric Pupils: Present: PERRL - Neck Neck exam general surgery: Present: supple, trachea midline. Absent: lymphadenopathy, tenderness - Respiratory Respiratory exam: Present: CTAB. Absent: accessory muscle use, chest wall tenderness, rales, respiratory distress, rhonchi, wheezes - Cardiovascular Cardiovascular exam: Present: RRR, +S1, +S2. Absent: diastolic murmur, gallop, rubs, systolic murmur - GI/Abdominal GI/Abdominal exam: Present: normal bowel sounds, soft. Absent: distended, hepatomegaly, tenderness - Extremities Exam Extremities exam: Present: normal capillary refill, normal inspection, warm, radial pulses palpable and symmetrical. Absent: calf tenderness, cyanotic, pedal edema, tenderness - Neurological Exam Neurological exam: Present: alert, oriented X3, no focal deficits. Absent: facial droop, speech deficit - Skin Skin exam: Present: dry, intact, normal color, warm. Absent: rash - Patient Status Disposition: Home, Self-Care Condition: Good - Discharge Instructions Follow Up With: NONE,PCP [Primary Care Provider] - Forms: ED Satisfaction Letter Additional Instructions: Follow up with your PCP in the next 3-5 days for a recheck. Take your medications as directed. Return to the ER as needed for any other problems or concerns, or if your symptoms return or worsen. Resume your normal medications and return to your normal diet and activties as tolerated. - Diet and Activity Activity: increase activity as tolerated Diet: advance to your usual diet
--- NOTE | 2018-02-02 15:34 | Electrocardiograph Report ---
[address] [address] Test Date: 2018-02-01 Pat Name: Rene Dodd Department: Room: 3B24 Gender: M [employer]: : [id number] Requested By: Evelin Baron Order Number: [id number] Reading MD: Miguel Lopez Measurements Intervals [employer] Rate: 93 P: 75 AL: 125 QRS: 46 QRSD: 90 T: 69 QT: 349 QTc: 435 Interpretive Statements Sinus rhythm Electronically Signed On 02-02-2018 15:33:10 EDT by Miguel Lopez
== END 2018-02-02 16:02 | disposition home or self-care (01) ==
LOC: 3BNU 16:07 → EMEROOARM 16:07 → 3BNU 21:00
PROVIDERS: ADMIT Internal Medicine; ATTEND Internal Medicine